=== PATIENT | male | born 1990 | race Caucasian/White ===

== ENCOUNTER 2017-03-26 20:26 | Emergency (ER) | payer MEDICAID ==
[~2017-03-26] VITALS: Ht 175.3 cm; Wt 69.4 kg
[2017-03-26 20:32] VITALS: Ht 175.3 cm; Wt 69.4 kg
[2017-03-26 22:19] VITALS: BP 150/109
== END 2017-03-27 00:47 | disposition home or self-care (01) ==
LOC: ED 20:26
DX: R51 Headache (principal); F17.200 Nicotine dependence, unspecified, uncomplicated
CPT/HCPCS: 99406

== ENCOUNTER 2017-03-27 06:03 | Emergency (ER) | payer MEDICAID ==
[~2017-03-27] VITALS: Ht 172.7 cm; Wt 70.3 kg
[2017-03-27 06:05] VITALS: Ht 172.7 cm; Wt 70.3 kg
[2017-03-27 06:44] VITALS: BP 126/69
== END 2017-03-27 06:44 | disposition home or self-care (01) ==
LOC: ED 06:03
DX: R51 Headache (principal)